=== PATIENT | female | born 2000 | race Caucasian/White ===

== ENCOUNTER 2020-04-27 13:51 | Emergency (ER) | payer OTHER ==
[~2020-04-27] VITALS: Ht 162.6 cm; Wt 52.7 kg
[2020-04-27 15:31] LABS: BASOPHILS # (AUTO) 0.03 x10^3/uL (0-0.1); BASOPHILS % (AUTO) 1 % (0-1); EOSINOPHILS # (AUTO) 0.04 x10^3/uL (0-0.4); EOSINOPHILS % (AUTO) 1 % (1-7); LYMPHOCYTES # (AUTO) 2.09 x10^3/uL (1-3.4); LYMPHOCYTES % (AUTO) 37 % (22-44); MD NO; MEAN CORPUSCULAR HEMOGLOBIN 31.3 pg (27.0-34.8); MEAN CORPUSCULAR HGB CONC 33.4 g/dL (32.4-35.8); MEAN CORPUSCULAR VOLUME 93.7 fL (80-100); MEAN PLATELET VOLUME 7.8 fL (7.4-10.4); MONOCYTES # (AUTO) 0.41 x10^3/uL (0.2-0.8); MONOCYTES % (AUTO) 7 % (2-9); NEUTROPHILS # (AUTO) 3.06 x10^3/uL (1.8-6.8); NEUTROPHILS % (AUTO) 54 % (42-75); PLATELET COUNT 277 x10^3/uL (130-400); RED BLOOD COUNT 4.07 x10^6/uL (3.82-5.3); RED CELL DISTRIBUTION WIDTH 12.4 % (9.6-15.2)
[2020-04-27 15:41] LABS: ALANINE AMINOTRANSFERASE 16 U/L (12-78); ALBUMIN 3.5 g/dL (3.4-5.0); ANION GAP 7 mmol/L (5-15); CALCIUM 8.6 mg/dL (8.5-10.1); CHLORIDE 110 mmol/L (98-107); CREATININE 0.81 mg/dL (0.55-1.02)
[2020-04-27 15:46] LABS: ALKALINE PHOSPHATASE 45 U/L (45-117); BILIRUBIN,TOTAL 0.4 mg/dL (0.2-1.0); TOTAL PROTEIN 7.1 g/dL (6.4-8.2)
[2020-04-27 15:52] LABS: MICROSCOPIC INDICATED
--- NOTE | 2020-04-27 16:24 | NUR ---
pt resting in bed , pt denied any wants or needs at this time, pt on monitor and clinical writer will continue to monitor pt.
[2020-04-27 16:56] VITALS: BP 122/65
== END 2020-04-27 16:59 | disposition home or self-care (01) ==
LOC: ED 16:15
DX: K59.00 Constipation, unspecified (principal); R10.31 Right lower quadrant pain; R05 Cough; R11.0 Nausea; R07.89 Other chest pain
CPT/HCPCS: 36415; 71045; 74021; 76700; 80053; 81001; 83690; 84703; 85025; 87086; 99285

== ENCOUNTER 2020-05-01 09:37 | Emergency (ER) | payer OTHER ==
[~2020-05-01] VITALS: Ht 162.6 cm; Wt 55.0 kg
[2020-05-01 10:09] LABS: BASOPHILS # (AUTO) 0.04 x10^3/uL (0-0.1); BASOPHILS % (AUTO) 1 % (0-1); EOSINOPHILS # (AUTO) 0.03 x10^3/uL (0-0.4); EOSINOPHILS % (AUTO) 1 % (1-7); LYMPHOCYTES # (AUTO) 1.77 x10^3/uL (1-3.4); LYMPHOCYTES % (AUTO) 40 % (22-44); MD NO; MEAN CORPUSCULAR HEMOGLOBIN 31.5 pg (27.0-34.8); MEAN CORPUSCULAR HGB CONC 33.5 g/dL (32.4-35.8); MEAN PLATELET VOLUME 7.9 fL (7.4-10.4); MONOCYTES # (AUTO) 0.35 x10^3/uL (0.2-0.8); MONOCYTES % (AUTO) 8 % (2-9); NEUTROPHILS # (AUTO) 2.27 x10^3/uL (1.8-6.8); NEUTROPHILS % (AUTO) 51 % (42-75); PLATELET COUNT 310 x10^3/uL (130-400); RED BLOOD COUNT 4.41 x10^6/uL (3.82-5.3); RED CELL DISTRIBUTION WIDTH 12.3 % (9.6-15.2)
[2020-05-01 10:19] LABS: ANION GAP 7 mmol/L (5-15); CALCIUM 9.2 mg/dL (8.5-10.1); CHLORIDE 109 mmol/L (98-107)
[2020-05-01 10:23] LABS: ALANINE AMINOTRANSFERASE 20 U/L (12-78); ALKALINE PHOSPHATASE 56 U/L (45-117); BILIRUBIN,TOTAL 0.7 mg/dL (0.2-1.0); CREATININE 0.96 mg/dL (0.55-1.02); TOTAL PROTEIN 7.7 g/dL (6.4-8.2)
--- NOTE | 2020-05-01 10:23 | NUR ---
FISCAL ACCOUNTING CLERK: URINE COLLECTED AND WALKED TO LAB.
[2020-05-01 10:35] LABS: MICROSCOPIC INDICATED
--- NOTE | 2020-05-01 10:57 | NUR ---
PT ROOMED. PLACED ON VITALS MONITORS, CALL LIGHT WITHIN REACH.
[2020-05-01] MEDS ORDERED: KETOROLAC 30 MG/1 ML ONE (11:08)
[2020-05-01] MEDS ORDERED: KETOROLAC 30 MG/1 ML IM ONE (11:30)
[2020-05-01 11:41] VITALS: BP 99/63
== END 2020-05-01 11:51 | disposition home or self-care (01) ==
LOC: ED 11:46
DX: N83.291 Other ovarian cyst, right side (principal); R10.9 Unspecified abdominal pain; R11.2 Nausea with vomiting, unspecified
CPT/HCPCS: 36415; 74176; 80053; 81001; 85025; 87086; 96372; 99284; J1885

== ENCOUNTER 2020-07-23 19:52 | Emergency (ER) | payer OTHER ==
[~2020-07-23] VITALS: Ht 162.6 cm; Wt 51.8 kg
[2020-07-23] MEDS ORDERED: HALOPERIDOL 5 MG/ML ONE (20:19)
[2020-07-23] MEDS ORDERED: ONDANSETRON 2MG/ML, 2ML ONE (20:28)
[2020-07-23] MEDS ORDERED: SODIUM CHLORIDE 0.9% 1,000ML IVBOLUS ONE (20:30)
[2020-07-23] MEDS ORDERED: ONDANSETRON 2MG/ML, 2ML IVPush ONE (20:30)
[2020-07-23] MEDS ORDERED: HALOPERIDOL 5 MG/ML IV ONE (20:30)
[2020-07-23 20:35] LABS: BASOPHILS % (AUTO) 0 % (0-1); EOSINOPHILS % (AUTO) 0 % (1-7); LYMPHOCYTES % (AUTO) 14 % (22-44); MEAN CORPUSCULAR HEMOGLOBIN 31.6 pg (27.0-34.8); MEAN CORPUSCULAR HGB CONC 34.3 g/dL (32.4-35.8); MEAN PLATELET VOLUME 7.5 fL (7.4-10.4); MONOCYTES % (AUTO) 8 % (2-9); NEUTROPHILS % (AUTO) 78 % (42-75); PLATELET COUNT 416 x10^3/uL (130-400); RED BLOOD COUNT 4.24 x10^6/uL (3.82-5.3); RED CELL DISTRIBUTION WIDTH 12.2 % (9.6-15.2)
[2020-07-23 20:46] LABS: ALANINE AMINOTRANSFERASE 22 U/L (12-78); ALBUMIN 3.8 g/dL (3.4-5.0); ANION GAP 12 mmol/L (5-15); CHLORIDE 109 mmol/L (98-107); CREATININE 0.95 mg/dL (0.55-1.02)
[2020-07-23 20:48] LABS: ALKALINE PHOSPHATASE 54 U/L (45-117); BILIRUBIN,TOTAL 0.6 mg/dL (0.2-1.0); TOTAL PROTEIN 7.8 g/dL (6.4-8.2)
[2020-07-23 20:54] LABS: MD SCAN
[2020-07-23] MEDS ORDERED: POTASSIUM CHLORIDE 40 MEQ in SODIUM CHLORIDE 0.9% 500 ML IV ONE (21:00)
--- NOTE | 2020-07-23 21:41 | NUR ---
PT IN ROOM, ANXIOUS, LOUD, HYPERVENTILATING. PT ENCOURAGED TO CALM DOWN. IV STARTED, LABS DRAWN AND SENT. ERP NOTIFIED, PT MEDICATED WITH NEW ORDERS. PT NOW RESTING IN BED, CALM, NORMAL RESPIRATIONS. FLUIDS INFUSING. PT EDUCATED ON NEED FOR URINE SAMPLE AND UPDATED PLAN OF CARE. VERBALIZES UNDERSTANDING, DENIES ANY NEEDS OR CONCERNS AT THIS TIME. CALL LIGHT IN REACH.
[2020-07-23] MEDS ORDERED: PROMETHAZINE 25 MG/ML, 1ML ONE (21:58)
[2020-07-23] MEDS ORDERED: PROMETHAZINE 25 MG/ML, 1ML IM ONE (22:00)
--- NOTE | 2020-07-23 22:08 | NUR ---
PT TO CT AT THIS TIME.
--- NOTE | 2020-07-23 22:19 | NUR ---
PT RETURNED FROM CT AT THIS TIME.
[2020-07-23] MEDS ORDERED: MORPHINE SULFATE 4 MG/ML, 1ML ONE (23:06)
[2020-07-23] MEDS ORDERED: MORPHINE SULFATE 4 MG/ML, 1ML IVPush PRN (23:30)
[2020-07-23 23:43] LABS: MICROSCOPIC INDICATED
--- NOTE | 2020-07-24 00:15 | NUR ---
THIS FLOAT RN AT BEDSIDE. PT PROVIDED WATER PER PO CHALLENGE ORDER.
--- NOTE | 2020-07-24 00:39 | NUR ---
PT TOLERATING PO FLUIDS WELL.
--- NOTE | 2020-07-24 01:18 | NUR ---
PT SLEEPING SOUNDLY IN BED. NAD NOTED, RESPIRATIONS EVEN AND UNLABORED. CALL LIGHT IN REACH. FLUIDS CONTINUE INFUSING AT THIS TIME.
[2020-07-24] MEDS ORDERED: SODIUM CHLORIDE 0.9% 1,000ML IVBOLUS ONE (02:00)
[2020-07-24 03:02] VITALS: BP 99/54
[2020-07-24] MEDS ORDERED: OMNIPAQUE 350 MG/ML, 100ML BOTTLE ONE (03:53)
== END 2020-07-24 03:04 | disposition home or self-care (01) ==
LOC: ED 20:46
DX: K52.9 Noninfective gastroenteritis and colitis, unspecified (principal); R11.2 Nausea with vomiting, unspecified; E86.0 Dehydration; R10.31 Right lower quadrant pain; R10.32 Left lower quadrant pain; R10.84 Generalized abdominal pain
CPT/HCPCS: 36415; 74177; 80047; 80053; 81001; 83690; 84703; 85025; 96361; 96365; 96366; 96372; 96375; 99285; J1630; J2270; J2405; J2550; J3480; J7030; J7040; Q9967